=== PATIENT | female | born 1955 | race Caucasian/White ===

== ENCOUNTER 2024-07-08 18:29 | Emergency (ER) | payer MEDICARE, SELFPAY ==
[2024-07-08 18:33] VITALS: BP 160/73; PULSE 58; RESP 16; TEMP 36.3; O2SAT 98; BMI 29.2
[2024-07-08 20:17] VITALS: BP 161/73; PULSE 69; O2SAT 97
--- NOTE | 2024-07-08 21:15 | ED.SKABFB ---
HPI - Skin/Abscess/Foreign Bdy General Chief complaint: Skin/Abscess/Foreign Body Stated complaint: lump on back of neck that is very sore Time Seen by Provider: 07/08/24 20:43 Source: patient Mode of arrival: Ambulatory History of Present Illness HPI narrative: Patient is a 68-year-old female who has had a lump on the back of her neck for the past 20 years. It was just pain very recently that the lump started to become more red and swollen. It was tender to palpation. No fevers. Has never had the lump evaluated in the past. Related Data Allergies Allergy/AdvReac Type Severity Reaction Status Date / Time Sulfa (Sulfonamide AdvReac Rash Verified 07/08/24 18:32 Antibiotics) Review of Systems Review of Systems Narrative: See HPI Patient History Social History Smoking Status: Never smoker Smoking Status: Never smoker Exam Initial Vital Signs Initial Vital Signs: Vital Signs Temperature 97.4 F L 07/08/24 18:33 Pulse Rate 58 L 07/08/24 18:33 Respiratory Rate 16 07/08/24 18:33 Blood Pressure 160/73 H 07/08/24 18:33 Pulse Oximetry 98 07/08/24 18:33 Oxygen Delivery Method Room Air 07/08/24 18:33 Skin Other: 3 cm x 3 cm well demarcated and palpable mass on the posterior aspect of the neck just right to midline. Small amount of or lying redness. No pustules. No vesicles. No breaks in the skin. Course Orders Ordered: Discontinued Medications Lidocaine/Epinephrine (Lidocaine 2% W/Epi Inj 10 Ml Vial) 20 ml INJ INTRA-OP ONE Stop: 07/08/24 21:16 Last Admin: 07/08/24 21:20 Dose: 10 ml Documented By: SB Vital Signs Vital signs: Vital Signs - 8 hr 07/08/24 20:17 07/08/24 22:26 Pulse Rate 69 62 Respiratory Rate 16 Blood Pressure 161/73 H 146/67 H Pulse Oximetry 97 97 Oxygen Delivery Method Room Air Room Air MDM - Skin/Abscess/Foreign Bdy MDM Narrative Medical decision making narrative: Bedside ultrasound shows that it does appear to be fluid-filled. Given her history I suspect that this is a cyst and not an abscess. I have low suspicion that it is a lipoma. There is some redness of the skin overlying the area but given the appearance of it I have low suspicion that this is cellulitis. I discussed options with the patient. We discussed treating it conservatively. No incision and drainage. No aspiration and having her follow up with General surgery because if it was a cyst and I were to incise it today there was a good chance that it would return. We discussed needle aspiration however my suspicion for an abscess is low and if it was cystic material most likely could not be aspirated. We discussed incision and drainage to confirm that it was a cyst. She understands the risks and benefits and the potential return of the structure. After the discussion of risks and benefits the patient opted for the incision and drainage. Approximately 2 cc 2% lidocaine with epinephrine was injected over the area after being cleaned. A 1 cm incision was made over the area. Cystic material was removed from the mass. I did inform her of this. There was no indication that there was any sort of purulence. No indication for antibiotics. The area was bandaged. Patient tolerated the procedure well. She was given care instructions and return precautions. She expressed understanding and agreement with the plan. Discharge Plan Departure Patient Disposition: Home Clinical Impression: Cyst Instructions: DI for Epidermal Cyst Activity Restrictions/Additional Instructions: Expect some drainage from the area over the next 24-48 hours. You may need to cover with a bandage. You can shower like normal. Return to the emergency department for new or worsening symptoms. Referrals: Miscellaneous,[facility] [Primary Care Provider] - Stand Alone Forms: Patient Portal/API/Survey
[2024-07-08] MEDS: LIDOCAINE 2% W/EPI INJ 10 ML VIAL 20 ML INJ (21:20)
[2024-07-08 22:26] VITALS: BP 146/67; PULSE 62; RESP 16; O2SAT 97
== END 2024-07-08 22:28 | disposition home or self-care (01) ==
PROVIDERS: Emergency Provider Emergency Medicine
DX: L72.9 Follicular cyst of the skin and subcutaneous tissue, unspecified (principal)
CPT/HCPCS: 10060; 99283